=== PATIENT | male | born 1975 | race Caucasian/White ===

== ENCOUNTER 2016-08-25 08:22 | Emergency (ER) | payer OTHER ==
[~2016-08-25 08:22] MED LIST: ASPIRIN EC LOW81 MG PO; CLARITIN10 MG PO; HYDROCHLOROTHIA25 MG PO; LISINOPRIL5 MG PO; LOPRESSOR25 MG PO; METFORMIN HCL500 MG PO; NITROSTAT0.4 MG SL; OMEPRAZOLE20 M1 PO; ZOLOFT50 MG PO
--- NOTE | 2016-08-25 11:46 | DIAGNOSTIC IMAGING REPORT ---
PROCEDURE: XR FOOT 3 VIEWS - LEFT INDICATION: PAIN TECHNIQUE: Three views. COMPARISON: None. FINDINGS: Mild degenerative changes of the first MTP, tarsal and tibiotalar joint. Plantar calcaneal spur. No fracture dislocation. Soft tissues are unremarkable. 1. Mild osteoarthritic changes of the left foot.
--- NOTE | 2016-08-25 12:03 | DIAGNOSTIC IMAGING REPORT ---
PROCEDURE: US VENOUS - LEFT EXT INDICATION: SWELLING TECHNIQUE: Duplex sonography of the deep venous system in the left lower extremity was performed. Compression and augmentation techniques were used. COMPARISON: None. FINDINGS: Normal compression of the greater saphenous, common femoral, superficial femoral, popliteal, peroneal, and posterior tibial veins. Normal augmentation. There is no evidence of superficial or deep venous thrombosis. IMPRESSION: 1. Negative venous ultrasound of the left lower extremity.
--- NOTE | 2016-08-25 12:29 | ED NURSING NOTES ---
Clinical Report - Nurses [facility] [address] [place] [place] [address] 08/25/2016 8:23 Patient: KILO REYNOSO JR TRIAGE Triage time 08:30. Acuity: LEVEL 4. Chief Complaint: LEFT LOWER EXTREMITY PAIN. Location of symptoms- left foot. Alert. No acute distress. SEPSIS SCREEN: Sepsis Screen. Negative (no infection suspected/documented). RIVER COMA SCORE: [place] Coma Scale: 15- eyes open spontaneously (4); best verbal response- oriented x 4 (5); best motor response- obeys commands (6). --08:36 Tonie Gleason R.N. 08:31 08/25/16. BP: 144/102. HR: 73. RR: 16. O2 saturation: 98% on room air. Temp: 97.7 F (oral). Pain level now 10. --08:36 Tonie Gleason R.N. Weight: 154.6 kg stated. Height/Length: 76 inches Per Patient. BMI: 41.5. --08:35 Tonie Gleason R.N. Medications None. --08:33 Tonie Gleason R.N. Medication/allergy information source: the patient. --08:36 Tonie Gleason R.N. Allergies No Known Drug Allergy. --08:34 Tonie Gleason R.N. History Arrived by private vehicle, and accompanied by spouse. Primary physician (AZUL vail). ( states he awoke with left foot swelling and pain, denies injury. States foot was normal when he went to bed last night. Denies any calf painn. Pt states he is a diabetic, supposed to be be taking antihypertensives and metformin, but that he does not take any medications "because I'm stubborn"). No injury occurred. This occurred just prior to arrival. Occurred at home. Provoking / relieving factors: worsened by movement and walking. 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 SOCIAL HX: Heavy tobacco smoker (cigarette)- less than 1 pack per day. Occasional alcohol use. No drug use. ABUSE ASSESSMENT: Abuse assessment: The patient was asked "Do you feel safe in your home?". No report of abuse. SELF HARM ASSESSMENT: A self harm assessment was performed. The patient answered "no" to the question "Do you have thoughts of harming or killing yourself?" and "Have you recently had thoughts about harming or killing others?". FALL RISK ASSESSMENT: Fall risk assessment completed. No fall risk identified. NUTRITIONAL RISK ASSESSMENT: The nutritional risk assessment revealed no deficiencies. FUNCTIONAL ASSESSMENT: Functional assessment: no impairments noted. LEARNING NEEDS ASSESSMENT: The learning needs assessment revealed no barriers. SKIN INTEGRITY ASSESSMENT: Skin integrity risk assessment completed. No skin integrity risk identified. --08:36 Tonie Gleason R.N. PROBLEMS: Parotitis. Mental Illness. Conjunctivitis. Glaucoma. Influenza. Hypercholesterolemia. Diabetes Mellitus. Chest Pain. Acid reflux. Depression. Hypertension. Immunizations. --08:34 Tonie Gleason R.N. ADDITIONAL SURGERIES: Benign cyst removed. Knee Surgery. [place] Teeth. --08:34 Tonie Gleason R.N. Interventions ID band on patient. To treatment room. --08:36 Tonie Gleason R.N. PHYSICAL ASSESSMENT Ambulatory to room. GENERAL / NEURO / PSYCH: Oriented X 4. Alert. Appears in no acute distress. EXTREMITIES: Extremity pulses are within normal limits. Left foot: tenderness. SKIN: Skin is warm and dry. --08:37 Tonie Gleason R.N. NURSING PROGRESS NOTES 08:37 08/25/16. The plan of care for this patient has been created. Extremity elevated. Call light placed in reach. Bed placed in lowest position. Brakes of bed on. --08:37 Tonie Gleason R.N. 09:31 08/25/2016 Site #1 started via IV in the right antecubital space with an 20g angiocath, with aseptic technique and good blood return; one attempt. Blood drawn: rainbow set. Labeled in the presence of the patient and sent to the lab. Saline lock flushed with 10 mL saline. --09:36 Tonie Gleason R.N. The patient is calm and resting quietly. --10:44 Tonie Gleason R.N. 10:42 08/25/16. BP: 137/85. HR: 71. RR: 17. O2 saturation: 98% on room air. Pain level now: 05/21. --10:44 Tonie Gleason R.N. DISPOSITION / DISCHARGE 13:02 08/25/2016 Site #1 removed upon discharge. Bandaid applied. --13:07 Raymond Harris R.N. No learning barriers present. Discharge instructions provided and reviewed with the patient and spouse. Reviewed medication(s) side effects, precautions, dosing and course information. Prescription(s) given to the patient. Patient verbalized understanding. Written instructions provided in Malay. The patient was discharged by the physician. He was discharged home and accompanied by spouse. He left the Emergency Department ambulatory and via private vehicle. --13:08 Raymond Harris R.N. ( pt dc only by this RN. given rx and f/u, ambulatory to lobby with steady gait). --13:08 Raymond Harris R.N. 13:08 08/25/16. BP: 131/70. HR: 68. RR: 17. O2 saturation: 99%. Temp: deferred. Pain level now deferred. --13:08 Raymond Harris R.N. Locked/Released at 08/26/2016 9:37 by Tonie Gleason R.N.
--- NOTE | 2016-08-25 12:29 | ED CLINICAL REPORT ---
Clinical Report - Physicians/Mid Levels [facility] [address] [place] [address] 08/25/2016 8:23 Patient: KILO REYNOSO JR Time Seen: 08:58. Arrived- By private vehicle. Historian- patient. HISTORY OF PRESENT ILLNESS Chief Complaint: LOWER EXTREMITY PAIN and SWELLING. Severity is described as being .it has become recently worse. The quality is noted to be aching and "pain". No radiation. This started today and is still present. It was abrupt in onset and has been constant. Symptoms located in the area of the left foot. The patient has had new onset of mild swelling of the left foot. He has had mild difficulty walking. It has been associated with pain. Patient notes the possibility of an injury. Mechanism of injury- (the patient started a new job recently. He says that he is standing on his feetand that they have been sore intermittently because of this. However today he says his left foot is very painful and swollen). Similar symptoms previously: Milder. REVIEW OF SYSTEMS No chills, fever, sweats, calf pain or chest pain. No cough, difficulty breathing, pedal edema, palpitations or abdominal pain. No constipation, diarrhea, nausea, vomiting or urinary problems. No polydipsia, polyuria, polyphagia, weight loss or fatigue. patient reports that he ran out of his medications for hypertension and diabetes about 6 weeks ago. He has not been taking them since. he had been on metformin, glipizide, lisinopril and hydrochlorothiazide. All systems otherwise negative, except as recorded above. SOCIAL HISTORY Current every day heavy tobacco smoker (cigarette)- less than 1 pack per day. Occasional alcohol use. No drug use. He lives with spouse. Has good social support. FAMILY HISTORY Diabetes in first-degree relative (mother, father and sibling); heart disease in first-degree relative (father). ADDITIONAL NOTES The nursing notes have been reviewed. PHYSICAL EXAM Vital Signs: 08/25/2016 08:31 BP: 144/102. HR: 73. RR: 16. O2 saturation: 98%. Temp: 97.7 F. Have been reviewed. Appearance: Alert. Eyes: Pupils equal, round and reactive to light. ENT: Pharynx normal. Neck: Normal inspection. Neck supple. CVS: Normal heart rate and rhythm. Abdomen: Soft and nontender. No organomegaly. Obese. Skin: Skin intact. Skin warm and dry. Normal skin color. Normal skin turgor. Extremities: Left foot: moderate tenderness and mild swelling of the dorsal aspect of the mid foot. No signs of infection involving the lower extremities. Extremities otherwise negative. LABS, X-RAYS, AND EKG Lt Foot X-ray: (Mild osteoarthritic changes of the left foot.). The X-rays were interpreted by the radiologist and contemporaneously by me. Lower Extremity Sonography: Negative study. Laboratory Tests: UA-Culture if indicated: (MADELEINE: 08/25/2016 10:55) ( [facility] [place] 08/25/2016 11:33) Final results Test Result Flag Units (Reference) URINE COLOR YELLOW URINE APPEARANCE CLEAR URINE GLUCOSE NEGATIVE (NEGATIVE) URINE BILIRUBIN NEGATIVE (NEGATIVE) URINE KETONE NEGATIVE (NEGATIVE) URINE SPECIFIC GRAVITY 1.025 (1.010-1.030) URINE PH 6.0 (5.0-8.0) URINE PROTEIN NEGATIVE (NEGATIVE) URINE UROBILINOGEN 0.2 EU/dL (0.2-1.0) URINE NITRITE NEGATIVE (NEGATIVE) URINE BLOOD TRACE-INTACT (NEGATIVE) URINE LEUK ESTERASE NEGATIVE (NEGATIVE) URINE RBC 1-3 rbc/hpf (0-1) URINE WBC 1-3 wbc/hpf (0-1) URINE EPITHELIAL CELLS 0-1 EPI/hpf (0-5) URINE BACTERIA NONE SEEN (NONE SEEN) URINE COMMENT CULT NOT INDICATED 1+ MUCOUSURINE CULTURES ARE SET-UP BASED ON THE FOLLOWING CRITERIA:POSITIVE NITRITEPOSITIVE LEUKOCYTE ESTERASEGREATER THAN 10 WHITE BLOOD CELLSMODERATE (2+) OR GREATER BACTERIA ESR: (MADELEINE: 08/25/2016 09:31) ( [facility] [place] 08/25/[place] 11:44) Final results Test Result Flag Units (Reference) SED RATE WESTERGREN 6 mm/hr (0-15) CBC w Diff: (MADELEINE: 08/25/2016 09:31) ( [facility] [place] 08/25/2016 09:48) Final results Test Result Flag Units (Reference) WHITE BLOOD COUNT 6.7 K/uL (4.5-11.5) RED BLOOD COUNT 4.72 M/uL (4.50-5.90) HEMOGLOBIN 14.7 gm/dL (13.5-17.5) HEMATOCRIT 43.4 % (41.0-53.0) MEAN CELL VOLUME 92 fL (80-100) MEAN CORPUSCULAR HGB 31 pg (26-34) MEAN CORPUSCULAR HGB CONC 34 g/dL (31-37) RED CELL DISTRIBUTION WIDTH 12.9 % (11.6-14.8) PLATELET COUNT 206 K/uL (150-400) NEUTROPHIL % 64.5 % (50-75) LYMPH % 22.9 L % (25-40) MONO % 7.7 % (3-14) EOSINOPHIL % 3.5 % (0-4) BASOPHIL % 1.4 % (0-2) CMP: (MADELEINE: 08/25/2016 09:31) ( [facility] [place] 08/25/2016 10:15) Final results Test Result Flag Units (Reference) GLUCOSE 187 H mg/dL (70-110) BUN 14 mg/dL (7-18) CREATININE 0.9 mg/dL (0.6-1.3) Estimated GFR >60 mL/min Estimated GFR- >60 mL/min Note: Persistent reduction over 3 months in eGFR<60 mL/min/1.73 m2 defines CKD. Patients with eGFR values>=60 mL/min/1.73 m2 may also have CKD if evidence ofpersistent proteinuria. Additional information may be foundat www.kidney.org. SODIUM 140 mmol/L (136-145) POTASSIUM 4.1 mmol/L (3.5-5.1) CHLORIDE 104 mmol/L (98-107) CARBON DIOXIDE 28 mmol/L (21-32) CALCIUM 8.9 mg/dL (8.5-10.1) TOTAL PROTEIN 7.1 g/dL (6.4-8.2) ALBUMIN 4.1 g/dL (3.3-5.0) BILIRUBIN, TOTAL 1.1 H mg/dL (0.0-1.0) ALKALINE PHOSPHATASE 81 U/L (46-116) AST (SGOT) 35 U/L (15-37) ALT (SGPT) 71 U/L (12-78) LIPASE 609 H U/L (73-393) AMYLASE 103 U/L (25-115) . PROGRESS AND PROCEDURES Patient/family counseled. Old medical records reviewed. Disposition: Discharged. Condition: stable. CLINICAL IMPRESSION Acute left foot pain (over use injury). Idiopathic pancreatitis. Diabetes. Hypertension. INSTRUCTIONS Apply ice for 20 minutes four times a day until better. Don't apply ice directly to skin and don't use while asleep. You may walk and bear weight as tolerated. Take clear liquids only. (You should new shoes with the orthotic inserts while working as discussed.). Warnings: Further evaluation is necessary. GENERAL WARNINGS: Return or contact your physician immediately if your condition worsens or changes unexpectedly, if not improving as expected, or if other problems arise. Prescription Medications: Lisinopril/HCTZ 20/12.5 mg: take 1 orally every day. Dispense fifteen (15). No refills. Metformin 1000 mg: take 1 orally every 12 hours. Dispense thirty (30). No refills. Glipizide 5 mg: Take 1 orally every 24 hours. Dispense fifteen (15). No refills. OTC Medications: Acetaminophen (available over the counter): take according to label instructions. Motrin (available over the counter): take according to label instructions. Understanding of the discharge instructions verbalized by patient and family. (Electronically signed by Luciano Kinsey MD 08/25/2016 13:14)
--- NOTE | 2016-08-25 12:29 | ED ORDER SUMMARY ---
..... Patient: KILO REYNOSO JR OrderSheet [facility] VisitID: [id number] [place] [address] 40y, M Registration Date/Time: 08/25/2016 ORDER SHEET Weight: 154.6 kg (stated) Allergies: No Known Drug Allergy GENERAL ORDERS: CBC w Diff Urgent (08:59 08/25/2016 Albaro MCKEON) (Ack 9:01 KHoerner) (9:35 KWilliams R.N.) CMP Urgent (08:08/25/2016 Albaro MCKEON) (Ack 9:01 AMYoerner) (9:35 KWilliams R.N.) Amylase Urgent (:08/25/2016 Albaro MCKEON) (Ack 9:01 KHoerner) (9:35 KWilliams R.N.) Lipase Urgent (08:08/25/2016 Albaro MCKEON) (Ack 9:01 AMYoerner) (9:35 KWilliams R.N.) UA-Culture if indicated Urgent (08:08/25/2016 Albaro MCKEON) (Ack 9:01 AMYoerner) (11:00 Marina) US Venous Left Urgent (10:00 08/25/2016 Albaro MCKEON) (Ack 10:03 KHoerner) (11:38 Anmol) Foot 3V Left Urgent (10:01 08/25/2016 Albaro MCKEON) (Ack 10:03 AMYoerner) (10:22 Anmol) ESR Urgent (10:38 08/25/2016 Albaro MCKEON) (10:38 KHoerner) MEDICATION ORDERS: IV FLUIDS: IV Saline Lock (08:08/25/2016 Albaro MCKEON) (9:36 KWilliams R.N.) ORDER SHEET NOTES: [Electronically signed by Luciano Kinsey MD (13:14 08/25/2016)] [Electronically signed by Tonie Gleason R.N. (09:37 08/26/2016)] [Electronically locked/signed by Tonie Gleason R.N. (09:37 08/26/2016)]
--- NOTE | 2016-08-25 12:29 | ED ORDER SUMMARY ---
..... Patient: KILO REYNOSO JR OrderSheet [facility] VisitID: [id number] [place] [address] 40y, M Registration Date/Time: 08/25/2016 ORDER SHEET Weight: 154.6 kg (stated) Allergies: No Known Drug Allergy GENERAL ORDERS: CBC w Diff Urgent (08:59 08/25/2016 Albaro MCKEON) (Ack 9:01 KHoerner) (9:35 KWilliams R.N.) CMP Urgent (08:08/25/2016 Albaro MCKEON) (Ack 9:01 AMYoerner) (9:35 KWilliams R.N.) Amylase Urgent (:08/25/2016 Albaro MCKEON) (Ack 9:01 KHoerner) (9:35 KWilliams R.N.) Lipase Urgent (08:08/25/2016 Albaro MCKEON) (Ack 9:01 AMYoerner) (9:35 KWilliams R.N.) UA-Culture if indicated Urgent (08:08/25/2016 Albaro MCKEON) (Ack 9:01 AMYoerner) (11:00 Marina) US Venous Left Urgent (10:00 08/25/2016 Albaro MCKEON) (Ack 10:03 KHoerner) (11:38 Anmol) Foot 3V Left Urgent (10:01 08/25/2016 Albaro MCKEON) (Ack 10:03 AMYoerner) (10:22 Anmol) ESR Urgent (10:38 08/25/2016 Albaro MCKEON) (10:38 KHoerner) MEDICATION ORDERS: IV FLUIDS: IV Saline Lock (08:08/25/2016 Albaro MCKEON) (9:36 KWilliams R.N.) ORDER SHEET NOTES: [Electronically signed by Luciano Kinsey MD (13:14 08/25/2016)] [Electronically signed by Tonie Gleason R.N. (09:37 08/26/2016)] [Electronically locked/signed by Tonie Gleason R.N. (09:37 08/26/2016)]
--- NOTE | 2016-08-25 12:29 | ED NURSING NOTES ---
Clinical Report - Nurses [facility] [address] [place] [address] 08/25/2016 8:23 Patient: KILO REYNOSO JR TRIAGE Triage time 08:30. Acuity: LEVEL 4. Chief Complaint: LEFT LOWER EXTREMITY PAIN. Location of symptoms- left foot. Alert. No acute distress. SEPSIS SCREEN: Sepsis Screen. Negative (no infection suspected/documented). RIVER COMA SCORE: [place] Coma Scale: 15- eyes open spontaneously (4); best verbal response- oriented x 4 (5); best motor response- obeys commands (6). --08:36 Tonie Gleason R.N. 08:31 08/25/16. BP: 144/102. HR: 73. RR: 16. O2 saturation: 98% on room air. Temp: 97.7 F (oral). Pain level now 10. --08:36 Tonie Gleason R.N. Weight: 154.6 kg stated. Height/Length: 76 inches Per Patient. BMI: 41.5. --08:35 Tonie Gleason R.N. Medications None. --08:33 Tonie Gleason R.N. Medication/allergy information source: the patient. --08:36 Tonie Gleason R.N. Allergies No Known Drug Allergy. --08:34 Tonie Gleason R.N. History Arrived by private vehicle, and accompanied by spouse. Primary physician (AZUL vail). ( states he awoke with left foot swelling and pain, denies injury. States foot was normal when he went to bed last night. Denies any calf painn. Pt states he is a diabetic, supposed to be be taking antihypertensives and metformin, but that he does not take any medications "because I'm stubborn"). No injury occurred. This occurred just prior to arrival. Occurred at home. Provoking / relieving factors: worsened by movement and walking. 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 SOCIAL HX: Heavy tobacco smoker (cigarette)- less than 1 pack per day. Occasional alcohol use. No drug use. ABUSE ASSESSMENT: Abuse assessment: The patient was asked "Do you feel safe in your home?". No report of abuse. SELF HARM ASSESSMENT: A self harm assessment was performed. The patient answered "no" to the question "Do you have thoughts of harming or killing yourself?" and "Have you recently had thoughts about harming or killing others?". FALL RISK ASSESSMENT: Fall risk assessment completed. No fall risk identified. NUTRITIONAL RISK ASSESSMENT: The nutritional risk assessment revealed no deficiencies. FUNCTIONAL ASSESSMENT: Functional assessment: no impairments noted. LEARNING NEEDS ASSESSMENT: The learning needs assessment revealed no barriers. SKIN INTEGRITY ASSESSMENT: Skin integrity risk assessment completed. No skin integrity risk identified. --08:36 Tonie Gleason R.N. PROBLEMS: Parotitis. Mental Illness. Conjunctivitis. Glaucoma. Influenza. Hypercholesterolemia. Diabetes Mellitus. Chest Pain. Acid reflux. Depression. Hypertension. Immunizations. --08:34 Tonie Gleason R.N. ADDITIONAL SURGERIES: Benign cyst removed. Knee Surgery. [place] Teeth. --08:34 Tonie Gleason R.N. Interventions ID band on patient. To treatment room. --08:36 Tonie Gleason R.N. PHYSICAL ASSESSMENT Ambulatory to room. GENERAL / NEURO / PSYCH: Oriented X 4. Alert. Appears in no acute distress. EXTREMITIES: Extremity pulses are within normal limits. Left foot: tenderness. SKIN: Skin is warm and dry. --08:37 Tonie Gleason R.N. NURSING PROGRESS NOTES 08:37 08/25/16. The plan of care for this patient has been created. Extremity elevated. Call light placed in reach. Bed placed in lowest position. Brakes of bed on. --08:37 Tonie Gleason R.N. 09:31 08/25/2016 Site #1 started via IV in the right antecubital space with an 20g angiocath, with aseptic technique and good blood return; one attempt. Blood drawn: rainbow set. Labeled in the presence of the patient and sent to the lab. Saline lock flushed with 10 mL saline. --09:36 Tonie Gleason R.N. The patient is calm and resting quietly. --10:44 Tonie Gleason R.N. 10:42 08/25/16. BP: 137/85. HR: 71. RR: 17. O2 saturation: 98% on room air. Pain level now: 05/21. --10:44 Tonie Gleason R.N. DISPOSITION / DISCHARGE 13:02 08/25/2016 Site #1 removed upon discharge. Bandaid applied. --13:07 Raymond Harris R.N. No learning barriers present. Discharge instructions provided and reviewed with the patient and spouse. Reviewed medication(s) side effects, precautions, dosing and course information. Prescription(s) given to the patient. Patient verbalized understanding. Written instructions provided in Bulgarian. The patient was discharged by the physician. He was discharged home and accompanied by spouse. He left the Emergency Department ambulatory and via private vehicle. --13:08 Raymond Harris R.N. ( pt dc only by this RN. given rx and f/u, ambulatory to lobby with steady gait). --13:08 Raymond Harris R.N. 13:08 08/25/16. BP: 131/70. HR: 68. RR: 17. O2 saturation: 99%. Temp: deferred. Pain level now deferred. --13:08 Raymond Harris R.N. Locked/Released at 08/26/2016 9:37 by Tonie Gleason R.N.
--- NOTE | 2016-08-26 09:37 | ED MED RECONCILIATION SUMMARY ---
Patient: KILO REYNOSO JR Medication Reconciliation Report [facility] VisitID: [id number] [place] [address] 40y, M Registration Date/Time: 08/25/2016 Weight: 154.6 kg Height/Length: 76 in. BMI: 41.5 ALLERGIES: No Known Drug Allergy The patient's Home Medications are listed below: NONE. The source(s) of the original Home Medication information: patient The following Medications were given to the patient in the Emergency Department: None. The following Medications were prescribed to the patient: Acetaminophen (available over the counter): take according to label instructions. -- Luciano Kinsey MD Motrin (available over the counter): take according to label instructions. -- Luciano Kinsey MD Lisinopril/HCTZ 20/12.5 mg: take 1 orally every day. Dispense fifteen (15). No refills. -- Luciano Kinsey MD Metformin 1000 mg: take 1 orally every 12 hours. Dispense thirty (30). No refills. -- Luciano Kinsey MD Glipizide 5 mg: Take 1 orally every 24 hours. Dispense fifteen (15). No refills. -- Luciano Kinsey MD
--- NOTE | 2016-08-26 09:37 | ED MAR SUMMARY ---
..... Medication Administration Record [facility] [address] [place], [place] [id number] Patient: KILO REYNOSO Visit ID: [id number] 40y, M Weight: 154.6 kg Height/Length: 76 in BMI: 41.5 ALLERGIES: No Known Drug Allergy
--- NOTE | 2016-08-26 09:37 | ED MAR SUMMARY ---
..... Medication Administration Record [facility] [address] [place], [place] [id number] Patient: KILO REYNOSO Visit ID: [id number] 40y, M Weight: 154.6 kg Height/Length: 76 in BMI: 41.5 ALLERGIES: No Known Drug Allergy
--- NOTE | 2016-08-26 09:37 | ED MED RECONCILIATION SUMMARY ---
Patient: KILO REYNOSO JR Medication Reconciliation Report [facility] VisitID: [id number] [place] [address] 40y, M Registration Date/Time: 08/25/2016 Weight: 154.6 kg Height/Length: 76 in. BMI: 41.5 ALLERGIES: No Known Drug Allergy The patient's Home Medications are listed below: NONE. The source(s) of the original Home Medication information: patient The following Medications were given to the patient in the Emergency Department: None. The following Medications were prescribed to the patient: Acetaminophen (available over the counter): take according to label instructions. -- Luciano Kinsey MD Motrin (available over the counter): take according to label instructions. -- Luciano Kinsey MD Lisinopril/HCTZ 20/12.5 mg: take 1 orally every day. Dispense fifteen (15). No refills. -- Luciano Kinsey MD Metformin 1000 mg: take 1 orally every 12 hours. Dispense thirty (30). No refills. -- Luciano Kinsey MD Glipizide 5 mg: Take 1 orally every 24 hours. Dispense fifteen (15). No refills. -- Luciano Kinsey MD
--- NOTE | 2016-08-26 09:37 | ED DISCHARGE INSTRUCTIONS ---
Patient: KILO REYNOSO JR General Instructions [facility] VisitID: [id number] [place] [address] 40y, M Registration Date/Time: 08/25/2016 Acute left foot pain (over use injury). Idiopathic pancreatitis. Diabetes. Hypertension. INSTRUCTIONS Apply ice for 20 minutes four times a day until better. Don't apply ice directly to skin and don't use while asleep. You may walk and bear weight as tolerated. Take clear liquids only. (You should new shoes with the orthotic inserts while working as discussed.). Warnings: Further evaluation is necessary. GENERAL WARNINGS: Return or contact your physician immediately if your condition worsens or changes unexpectedly, if not improving as expected, or if other problems arise. Prescription Medications: Lisinopril/HCTZ 20/12.5 mg: take 1 orally every day. Dispense fifteen (15). No refills. Metformin 1000 mg: take 1 orally every 12 hours. Dispense thirty (30). No refills. Glipizide 5 mg: Take 1 orally every 24 hours. Dispense fifteen (15). No refills. OTC Medications: Acetaminophen (available over the counter): take according to label instructions. Motrin (available over the counter): take according to label instructions. Understanding of the discharge instructions verbalized by patient and family. ADDITIONAL INFORMATION Myofascial Pain Syndrome: Fibrositis Your pain is caused by a state of chronic muscle tension. This condition is called by various names: myofascial pain, fibrositis and trigger point pain. This can also be due to mechanical stress (such as working at a computer terminal for long periods; or work that requires repetitive motions of the arms or hands) or emotional stress (such as problems on the job or in your personal life). Sometimes there is no obvious cause. The pain can occur in the area of the muscle spasm or at a site distant to it. For example, spasm of a neck muscle can cause headache. Spasm of the muscle near the shoulder blade can cause pain shooting down the arm. Home Care: Try to identify the factors that may be causing your problem and change them: If you feel thatemotional stressis a cause of your pain, learn methods to deal more effectively with the stress in your life. These may include regular exercise, muscle relaxation techniques, meditation or simply taking time out for yourself. Consult your doctor or go to a local bookstore and review the many books and tapes available on the subject of stress reduction. If you feel that physical stress is a cause for your pain, try to modify any poor work habits. You may use acetaminophen (Tylenol) or ibuprofen (Motrin, Advil) to control pain, unless another medicine was prescribed. [NOTE: If you have chronic liver or kidney disease or ever had a stomach ulcer or GI bleeding, talk with your doctor before using these medicines.] The use of heat to the muscle (hot compress or heating pad) will be helpful to reduce muscle spasm. Some persons get relief with ice packs. Apply an ice pack (crushed or cubed ice in a plastic bag, wrapped in a towel) for 20 minutes at a time as needed. Use the method that feels best to you. Massaging the trigger point and stretching out the muscleare an important parts of prevention and treatment. Trigger point massage can be done by first applying heat to the area to warm and prepare the muscle. Have someone apply steady thumb pressure directly on the knot in the muscle (the most tender point) for 30 seconds. Release the pressure, then massage the surrounding muscle. Repeat the process, applying more pressure to the trigger point each time. Do this up to the limit of pain. With each treatment, the trigger point should become less tender and the pain should decrease. You can apply local pressure to trigger points in the back by lying on the floor with a tennis ball under the trigger point. Follow Up with your doctor as advised or if not improving within the next week. It may be necessary for you to receive physical therapy if you do not respond to home treatment alone. Get Prompt Medical Attention if any of the following occur: If your trigger point is in the chest muscles, observe for pain that becomes more severe, lasts longer, or spreads into your shoulder/arm, neck or back; you develop trouble breathing, sweating, nausea or vomiting in association with chest pain If you develop weakness or numbness in an extremity If your pain worsens, regardless of its location Pancreatitis The pancreas is an organ in the left upper abdomen that secretes digestive juices into the stomach. Pancreatitis is an inflammation of the pancreas. This may occur for various causes including heavy alcohol use, gall stone blockage of the outflow duct from the pancreas, certain medicines and viral illness. Sometimes the cause of pancreatitis cannot be found. Moderate to severe illness requires being treated in the hospital. Milder attacks of pancreatitis can be treated at home. Home Care: 1) Absolutely NO ALCOHOL. 2) Rest in bed or sit up in a chair until you feel better. 3) Eat small more frequent meals rather than a few large meals each day. 4) Follow a high protein, high carbohydrate, low fat diet. 5) If you were given medicine for pain or vomiting, take it as prescribed. Follow Up with your doctor or as directed by our staff for further evaluation. Get Prompt Medical Attention if any of the following occur: -- Continued or worsening pain in the abdomen -- Repeated vomiting: unable to keep down liquids -- Dizziness, weakness or fainting -- Vomiting blood or blood in the stool (black or red color) -- Fever over 100.4 F (38.0 C) -- Severe muscle cramps or seizure -- Trouble breathing or fast breathing (over 25 breaths/minute) -- Jaundice (yellow color of the skin or eyes) Diabetes (General Information) Cells of the body need glucose (sugar) for fuel. Insulin is the hormone in the body that lets glucose move from the blood into the cells. Diabetes is a chronic health condition where the body is not able to produce enough insulin, or does not respond well to its own insulin. Because the glucose in the blood cannot get into the cells, it builds up in the blood causing high blood sugar (hyperglycemia). Your actual blood sugar level is a result of the balance between several factors. These include what kind of food you eat and how much of it you eat, how much exercise you get, and the amount of insulin present in your body. Eating too much of the wrong kinds of food or not taking diabetes medicine on time can cause high blood sugar. Infections can cause high blood sugar even if you are taking medicines correctly. Missing meals, not eating enough food, or taking too much diabetes medicine can lead to low blood sugar. Untreated over long periods of time, diabetes can cause serious problems such as heart disease, stroke, kidney failure, blindness, nerve pain or loss of feeling in the legs and feet, and gangrene of the feet. With good treatment keeping your blood sugar under control, you can prevent or delay the complications of diabetes. Normal blood sugar levels are 70-130 one to two hours before a meal and not more than 180 two hours after a meal. Home Care: Follow your prescribed diabetic diet and take insulin or oral diabetic medicine exactly as ordered. Monitor blood sugars as advised. Keep a log of your results. This will help your doctor adjust your medicines to keep your blood sugar under control. Try to achieve your ideal weight. Proper diet and exercise can reduce or eliminate the need to take diabetes medicine. Avoid tobacco smoking, which worsens the effect of diabetes on your circulation. The risk of a heart attack in a diabetic is 15 times more likely if you smoke. Pay attention to good foot care. If you have lost feeling in your feet you may not notice an injury or infection. Check your feet and between your toes at least once a week. Wear a medical alert bracelet or carry a card in your wallet explaining that you are diabetic. In the event that you become very ill and are unable to give this information, it will help medical personnel provide proper care. If you become sick with a cold, the flu, or an infection (viral or bacterial), please do the following: Review your diabetes sick plan and contact your physician as instructed. You may have been advised to call the doctor immediately if: Your blood sugar is above 240 while taking your diabetes medication Your urine ketone levels are above normal or showing high levels of ketones You have been vomiting more than 6 hours You experience difficulty to trouble breathing You develop a high fever or you have had a fever for a couple of days and you aren't getting better You become light-headed and more sleepy than usual Keep taking your oral diabetes medicine (pills) even if you have been vomiting and feeling sick. Contact your doctor immediately for advice because you may need insulin to lower your blood sugar until you recover from your illness. Keep taking your insulin, even if you have been vomiting and feeling sick. Call your doctor immediately and ask if a temporary adjustment of your insulin dose is needed based on your blood glucose (sugar) results. Check your blood sugar every 2 to 4 hours, or at least 4 times a day. Check your keytones often. If you are vomiting and having diarrhea, monitor them more frequently. Don't skip meals. Try to eat small meals on a regular schedule, even if you do not have an appetite. Drink water or other calorie-free, non-caffeinated liquids to stay hydrated. If you are nauseated or vomiting, drink small amounts (sips, a teaspoon) every 5 minutes. To prevent dehydration, try to drink a cup or 8 ounces of fluids every hour while you are awake. Always carry a source of fast-acting sugar with you in case you get symptoms of low blood sugar (below 70). At the first sign of low blood sugar, eat or drink 15 to 20 grams of fast-acting sugar to raise your blood sugar. Examples include: 3 to 4 glucose tablets (found at most drugstores) 4 ounces (1/2 cup) of regular (not diet) softdrinks 4 ounces (1/2 cup) of any fruit juice 8 ounces (1 cup) of milk 5 to 6 pieces of hard candy 1 tablespoon of honey Check your blood sugar 15 minutes after treating yourself. If it is still low (below 70), take another 15 to 20 grams of fast-acting sugar. Test again in 15 minutes. If it returns to normal (70 or above), eat a snack or meal to keep your blood sugar in a safe range. If it remains low, call your doctor or go to an emergency room. Follow Up with your doctor as advised by our staff. For more information, contact the [employer]. www.diabetes.org or 894-711-2224. Get Prompt Medical Attention if any of the following occur: HIGH BLOOD SUGAR: frequent urination, dizziness, drowsiness, thirst, headache, nausea or vomiting, abdominal pain, vision changes, fast breathing, confusion or loss of consciousness LOW BLOOD SUGAR: fatigue, headache, shakes, excess sweating, hunger, feeling anxious or restless, vision changes, drowsiness, weakness, confusion or loss of consciousness Chest pain or shortness of breath Dizziness or fainting Weakness of an arm or leg or one side of the face Trouble with speech or vision High Blood Pressure --Established High Blood Pressure (Hypertension) is a chronic disease. The cause is unknown in most cases. It can usually be controlled with lifestyle changes and/or medicines. Symptoms of high blood pressure may include headache, dizziness, visual changes, chest pain and shortness of breath. Sometimes it causes no symptoms at all. However, even if there are no symptoms, untreated high blood pressure increases the risk of heart attack, also known as acute myocardial infarction, or AMI, and stroke. It is a serious health risk and should not be ignored. A normal blood pressure is 120/80 or less. The first (top) number is the "systolic" pressure. The second (bottom) number is the "diastolic" pressure. Hypertension exists when either the top number is 140 or higher, OR the bottom number is 90 or higher on repeated measurements. Home Care: All patients with high blood pressure should do the following to lower their pressure. If you are on medicines, then these methods may reduce or eliminate your need for medicines in the future. Begin a weight loss program if you are overweight. Reduce your salt intake. Avoid high salt foods (olives, pickles, smoked meats, salted potato chips, etc.). Do not add salt to your food at the table. Use only small amounts of salt when cooking. Begin an exercise program. Discuss with your doctor what type of exercise program would be best for you. It doesn't have to be difficult. Even brisk walking for 20 minutes three times a week is a good form of exercise. Avoid medicines which contain heart stimulants. This includes many cold and sinus decongestant pills and sprays as well as diet pills. Check the warnings about hypertension on the label. Stimulants such as amphetamine or cocaine could be lethal for someone with hypertension. Never take these. Limit your caffeine intake or switch to caffeine-free products. Stop smoking. If you are a long-time smoker, this can be hard. Enroll in a stop-smoking program to improve your chance of success. Learning how to handle stress better is an important part of any program to lower blood pressure. Learn about relaxation methods such as meditation, yoga or biofeedback. If medicines were prescribed, take them exactly as directed. Missing doses may cause your blood pressure get out of control. Consider buying an automatic blood pressure machine (available at most pharmacies). Use this to monitor your blood pressure at home and report the results to your doctor. Follow Up: Regular visits to your own physician for blood pressure checks and medicine adjustment is an important part of your care. Make a follow-up appointment as directed by our staff. Get Prompt Medical Attention if any of the following occur: Chest pain or shortness of breath Severe headache Throbbing or rushing sound in the ears Nosebleed Sudden severe abdominal pain Extreme drowsiness, confusion or fainting Dizziness or vertigo (dizziness with spinning sensation) Weakness of an arm or leg or one side of the face Difficulty with speech or vision Clear Liquid Diet Clear liquids are any liquid that you can see through as well as those that are very easy to digest. This is used while the body is recovering from irritation or infection of the stomach or intestinal tract. It may also be used before special procedures or surgery. This diet is to be used no more than three days. You may include the following items. Adults Adults should drink a total of 23 quarts of liquid per day. It may be easier to drink small frequent servings rather than a few large ones. Liquids can include: Fruit juices.Strained orange juice or lemonade (no pulp), apple, grape and cranberry juice, clear fruit drinks, sports drinks Beverages.Sport drinks, sodas, mineral water (plain or flavored), tea, black coffee, liquid gelatin (add twice the recommended amount of water) Soups.Clear broth, consomm, bouillon Desserts.Plain gelatin, popsicles, fruit juice bars Children Over 2 years old The following liquids are acceptable for children over age 2: Fruit juices.Strained orange juice or lemonade (no pulp), apple, grape and cranberry juice, clear fruit drinks Beverages. Sports drinks, sodas, mineral water (plain or flavored), tea, liquid gelatin (add twice the recommended amount of water) Soups. Clear broth, consomm, bouillon Desserts. Plain gelatin, popsicles, fruit juice bars Children under 2 years old Oral rehydration fluids such are available at drug stores and most grocery stores without a prescription. Lisinopril Oral tablet What is this medicine? LISINOPRIL (lyse IN oh pril) is an SABRINA inhibitor. This medicine is used to treat high blood pressure and heart failure. It is also used to protect the heart immediately after a heart attack. How should I use this medicine? Take this medicine by mouth with a glass of water. Follow the directions on your prescription label. You may take this medicine with or without food. Take your medicine at regular intervals. Do not stop taking this medicine except on the advice of your doctor or health career transition specialist. Talk to your quotation clerk regarding the use of this medicine in children. Special care may be needed. While this drug may be prescribed for children as young as 6 years of age for selected conditions, precautions do apply. What side effects may I notice from receiving this medicine? Side effects that you should report to your doctor or health career transition specialist as soon as possible: abdominal pain with or without nausea or vomiting allergic reactions like skin rash or hives, swelling of the hands, feet, face, lips, throat, or tongue dark urine difficulty breathing dizzy, lightheaded or fainting spell fever or sore throat irregular heart beat, chest pain pain or difficulty passing urine redness, blistering, peeling or loosening of the skin, including inside the mouth unusually weak yellowing of the eyes or skin Side effects that usually do not require medical attention (report to your doctor or health career transition specialist if they continue or are bothersome): change in taste cough decreased sexual function or desire headache sun sensitivity tiredness What may interact with this medicine? diuretics lithium NSAIDs, medicines for pain and inflammation, like ibuprofen or naproxen [id number] herbal supplements like hawthorn potassium salts or potassium supplements salt substitutes What if I miss a dose? If you miss a dose, take it as soon as you can. If it is almost time for your next dose, take only that dose. Do not take double or extra doses. Where should I keep my medicine? Keep out of the reach of children. Store at room temperature between 15 and 30 degrees C (59 and 86 degrees F). Protect from moisture. Keep container tightly closed. Throw away any unused medicine after the expiration date. What should I tell my health care provider before I take this medicine? They need to know if you have any of these conditions: diabetes heart or blood vessel disease immune system disease like lupus or scleroderma kidney disease low blood pressure previous swelling of the tongue, face, or lips with difficulty breathing, difficulty swallowing, hoarseness, or tightening of the throat an unusual or allergic reaction to lisinopril, other SABRINA inhibitors, insect venom, foods, dyes, or preservatives or trying to get breast-feeding What should I watch for while using this medicine? Visit your doctor or health career transition specialist for regular check ups. Check your blood pressure as directed. Ask your doctor what your blood pressure should be, and when you should contact him or her. Call your doctor or health career transition specialist if you notice an irregular or fast heart beat. Women should inform their doctor if they wish to become or think they might be . There is a potential for serious side effects to an unborn child. Talk to your health career transition specialist or pharmacist for more information. Check with your doctor or health career transition specialist if you get an attack of severe diarrhea, nausea and vomiting, or if you sweat a lot. The loss of too much body fluid can make it dangerous for you to take this medicine. You may get drowsy or dizzy. Do not drive, use machinery, or do anything that needs mental alertness until you know how this drug affects you. Do not stand or sit up quickly, especially if you are an older patient. This reduces the risk of dizzy or fainting spells. Alcohol can make you more drowsy and dizzy. Avoid alcoholic drinks. Avoid salt substitutes unless you are told otherwise by your doctor or health career transition specialist. Do not treat yourself for coughs, colds, or pain while you are taking this medicine without asking your doctor or health career transition specialist for advice. Some ingredients may increase your blood pressure. Lisinopril, Hydrochlorothiazide Oral tablet What is this medicine? HYDROCHLOROTHIAZIDE; LISINOPRIL (floyd droe klor oh THYE a zide; lyse IN oh pril) is a combination of a diuretic and an SABRINA inhibitor. It is used to treat high blood pressure. How should I use this medicine? Take this medicine by mouth with a glass of water. Follow the directions on the prescription label. You can take it with or without food. If it upsets your stomach, take it with food. Take your medicine at regular intervals. Do not take it more often than directed. Do not stop taking except on your doctor's advice. Talk to your quotation clerk regarding the use of this medicine in children. Special care may be needed. What side effects may I notice from receiving this medicine? Side effects that you should report to your doctor or health career transition specialist as soon as possible: changes in vision confusion, dizziness, light headedness or fainting spells decreased amount of urine passed difficulty breathing or swallowing, hoarseness, or tightening of the throat eye pain fast or irregular heart beat, palpitations, or chest pain muscle cramps nausea and vomiting persistent dry cough redness, blistering, peeling or loosening of the skin, including inside the mouth stomach pain swelling of your face, lips, tongue, hands, or feet unusual rash, bleeding or bruising, or pinpoint red spots on the skin worsened gout pain yellowing of the eyes or skin Side effects that usually do not require medical attention (report to your doctor or health career transition specialist if they continue or are bothersome): change in sex drive or performance cough headache What may interact with this medicine? barbiturates like phenobarbital blood pressure medicines corticosteroids like prednisone diabetic medications diuretics, especially triamterene, spironolactone or amiloride lithium NSAIDs like ibuprofen potassium salts or potassium supplements prescription pain medicines skeletal muscle relaxants like tubocurarine some cholesterol lowering medications like cholestyramine or colestipol What if I miss a dose? If you miss a dose, take it as soon as you can. If it is almost time for your next dose, take only that dose. Do not take double or extra doses. Where should I keep my medicine? Keep out of the reach of children. Store at room temperature between 20 and 25 degrees C (68 and 77 degrees F). Protect from moisture and excessive light. Keep container tightly closed. Throw away any unused medicine after the expiration date. What should I tell my health care provider before I take this medicine? They need to know if you have any of these conditions: bone marrow disease decreased urine heart or blood vessel disease if you are on a special diet like a low salt diet immune system problems, like lupus kidney disease liver disease previous swelling of the tongue, face, or lips with difficulty breathing, difficulty swallowing, hoarseness, or tightening of the throat recent heart attack or stroke an unusual or allergic reaction to lisinopril, hydrochlorothiazide, sulfa drugs, other medicines, insect venom, foods, dyes, or preservatives or trying to get breast-feeding What should I watch for while using this medicine? Visit your doctor or health career transition specialist for regular checks on your progress. Check your blood pressure as directed. Ask your doctor or health career transition specialist what your blood pressure should be and when you should contact him or her. Call your doctor or health career transition specialist if you notice an irregular or fast heart beat. You must not get dehydrated. Ask your doctor or health career transition specialist how much fluid you need to drink a day. Check with him or her if you get an attack of severe diarrhea, nausea and vomiting, or if you sweat a lot. The loss of too much body fluid can make it dangerous for you to take this medicine. Women should inform their doctor if they wish to become or think they might be . There is a potential for serious side effects to an unborn child. Talk to your health career transition specialist or pharmacist for more information. You may get drowsy or dizzy. Do not drive, use machinery, or do anything that needs mental alertness until you know how this drug affects you. Do not stand or sit up quickly, especially if you are an older patient. This reduces the risk of dizzy or fainting spells. Alcohol can make you more drowsy and dizzy. Avoid alcoholic drinks. This medicine may affect your blood sugar level. If you have diabetes, check with your doctor or health career transition specialist before changing the dose of your diabetic medicine. Avoid salt substitutes unless you are told otherwise by your doctor or health career transition specialist. This medicine can make you more sensitive to the sun. Keep out of the sun. If you cannot avoid being in the sun, wear protective clothing and use sunscreen. Do not use sun lamps or tanning beds/booths. Do not treat yourself for coughs, colds, or pain while you are taking this medicine without asking your doctor or health career transition specialist for advice. Some ingredients may increase your blood pressure. Acetaminophen Oral tablet What is this medicine? ACETAMINOPHEN (a set a THALIA yennifer fen) is a pain reliever. It is used to treat mild pain and fever. How should I use this medicine? Take this medicine by mouth with a glass of water. Follow the directions on the package or prescription label. Take your medicine at regular intervals. Do not take your medicine more often than directed. Talk to your quotation clerk regarding the use of this medicine in children. While this drug may be prescribed for children as young as 6 years of age for selected conditions, precautions do apply. What side effects may I notice from receiving this medicine? Side effects that you should report to your doctor or health career transition specialist as soon as possible: allergic reactions like skin rash, itching or hives, swelling of the face, lips, or tongue breathing problems fever or sore throat redness, blistering, peeling or loosening of the skin, including inside the mouth trouble passing urine or change in the amount of urine unusual bleeding or bruising unusually weak or tired yellowing of the eyes or skin Side effects that usually do not require medical attention (report to your doctor or health career transition specialist if they continue or are bothersome): headache nausea, stomach upset What may interact with this medicine? alcohol imatinib isoniazid other medicines with acetaminophen What if I miss a dose? If you miss a dose, take it as soon as you can. If it is almost time for your next dose, take only that dose. Do not take double or extra doses. Where should I keep my medicine? Keep out of reach of children. Store at room temperature between 20 and 25 degrees C (68 and 77 degrees F). Protect from moisture and heat. Throw away any unused medicine after the expiration date. What should I tell my health care provider before I take this medicine? They need to know if you have any of these conditions: if you frequently drink alcohol containing drinks liver disease an unusual or allergic reaction to acetaminophen, other medicines, foods, dyes or preservatives or trying to get breast-feeding What should I watch for while using this medicine? Tell your doctor or health career transition specialist if the pain lasts more than 10 days (5 days for children), if it gets worse, or if there is a new or different kind of pain. Also, check with your doctor if a fever lasts for more than 3 days. Do not take other medicines that contain acetaminophen with this medicine. Always read labels carefully. If you have questions, ask your doctor or pharmacist. If you take too much acetaminophen get medical help right away. Too much acetaminophen can be very dangerous and cause liver damage. Even if you do not have symptoms, it is important to get help right away. Ibuprofen Oral tablet What is this medicine? IBUPROFEN (eye BYOO proe fen) is a non-steroidal anti-inflammatory drug (NSAID). It is used for dental pain, fever, headaches or migraines, osteoarthritis, rheumatoid arthritis, or painful monthly periods. It can also relieve minor aches and pains caused by a cold, flu, or sore throat. How should I use this medicine? Take this medicine by mouth with a glass of water. Follow the directions on the prescription label. Take this medicine with food if your stomach gets upset. Try to not lie down for at least 10 minutes after you take the medicine. Take your medicine at regular intervals. Do not take your medicine more often than directed. A special MedGuide will be given to you by the pharmacist with each prescription and refill. Be sure to read this information carefully each time. Talk to your quotation clerk regarding the use of this medicine in children. Special care may be needed. What side effects may I notice from receiving this medicine? Side effects that you should report to your doctor or health career transition specialist as soon as possible: allergic reactions like skin rash, itching or hives, swelling of the face, lips, or tongue black or bloody stools, blood in the urine or in vomit breathing problems changes in vision chest pain general ill feeling or flu-like symptoms nausea or vomiting redness, blistering, peeling or loosening of the skin, including inside the mouth slurred speech or weakness on one side of the body stomach pain unexplained weight gain or swelling unusually weak or tired yellowing of eyes or skin Side effects that usually do not require medical attention (report to your doctor or health career transition specialist if they continue or are bothersome): constipation or diarrhea dizziness gas or heartburn stomach upset What may interact with this medicine? Do not take this medicine with any of the following medications: cidofovir ketorolac methotrexate pemetrexed This medicine may also interact with the following medications: alcohol aspirin diuretics lithium other drugs for inflammation like prednisone warfarin What if I miss a dose? If you miss a dose, take it as soon as you can. If it is almost time for your next dose, take only that dose. Do not take double or extra doses. Where should I keep my medicine? Keep out of the reach of children. Store at room temperature between 15 and 30 degrees C (59 and 86 degrees F). Keep container tightly closed. Throw away any unused medicine after the expiration date. What should I tell my health care provider before I take this medicine? They need to know if you have any of these conditions: asthma cigarette smoker drink more than 3 alcohol containing drinks a day heart disease or circulation problems such as heart failure or leg edema (fluid retention) high blood pressure kidney disease liver disease stomach bleeding or ulcers an unusual or allergic reaction to ibuprofen, aspirin, other NSAIDS, other medicines, foods, dyes, or preservatives or trying to get breast-feeding What should I watch for while using this medicine? Tell your doctor or healthcare professional if your symptoms do not start to get better or if they get worse. This medicine does not prevent heart attack or stroke. In fact, this medicine may increase the chance of a heart attack or stroke. The chance may increase with longer use of this medicine and in people who have heart disease. If you take aspirin to prevent heart attack or stroke, talk with your doctor or health career transition specialist. Do not take other medicines that contain aspirin, ibuprofen, or naproxen with this medicine. Side effects such as stomach upset, nausea, or ulcers may be more likely to occur. Many medicines available without a prescription should not be taken with this medicine. This medicine can cause ulcers and bleeding in the stomach and intestines at any time during treatment. Ulcers and bleeding can happen without warning symptoms and can cause . To reduce your risk, do not smoke cigarettes or drink alcohol while you are taking this medicine. You may get drowsy or dizzy. Do not drive, use machinery, or do anything that needs mental alertness until you know how this medicine affects you. Do not stand or sit up quickly, especially if you are an older patient. This reduces the risk of dizzy or fainting spells. This medicine can cause you to bleed more easily. Try to avoid damage to your teeth and gums when you brush or floss your teeth. You have been given the following additional information: Myofascial Pain Syndrome Pancreatitis Diabetes, General Info Hypertension, Established Diet, Clear Liquid Lisinopril Oral tablet Lisinopril, Hydrochlorothiazide Oral tablet Acetaminophen Oral tablet Ibuprofen Oral tablet You may walk and bear weight as tolerated. (Electronically signed by Luciano Kinsey MD 08/25/2016 13:14)
== END 2016-08-25 13:08 | disposition home or self-care (01) ==
LOC: ED SRH 08:22
DX: M70.872 Other soft tissue disorders related to use, overuse and pressure, left ankle and foot (principal); K85.00 Idiopathic acute pancreatitis without necrosis or infection; E13.9 Other specified diabetes mellitus without complications; I10 Essential (primary) hypertension; Z79.84 Long term (current) use of oral hypoglycemic drugs; Z72.0 Tobacco use